=== PATIENT | male | born 2000 | race Caucasian/White ===

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

== ENCOUNTER 2019-10-28 21:12 | Emergency (ER) | payer SELFPAY ==
[2019-10-28] MEDS ORDERED: NAPROXEN 250 MG TABLET PO ONE (21:32)
--- NOTE | 2019-10-28 21:35 | ER Document Report ---
ED Oral Problem - General Chief Complaint: Toothache Stated Complaint: TOOTHACHE Time Seen by Provider: 10/28/19 21:18 Primary Care Provider: [facility] [Provider Group] - Follow up in 3-5 days [facility] [Provider Group] - Follow up in 3-5 days TRAVEL OUTSIDE OF THE [place] IN LAST 30 DAYS: No - HPI Notes: 19-year-old male to the emergency department with complaints of left lower jaw pain and tooth ache that began several days ago. He states he has been taking Tylenol to help control his plan but it is not getting better. He states that about a week ago he saw a dentist who told him that he needed to have his tooth pulled but it would cost about $300. He states he does not have that kind of money to spend. He states that he has not had any difficulty opening his mouth, fevers, drooling, facial swelling, difficulty breathing. He states that he does not smoke. - Related Data Allergies/Adverse Reactions: bee venom protein (honey bee) Allergy (Verified 10/28/19 21:20) bees Allergy (Uncoded 05/04/17 16:47) Past Medical History - General Information source: Patient - Social History Smoking Status: Former Smoker Frequency of alcohol use: None Drug Abuse: None Family History: Reviewed & Not Pertinent Patient has suicidal ideation: No Patient has homicidal ideation: No Renal/ Medical History: Denies: Hx Peritoneal Dialysis Psychiatric Medical History: Reports: Hx Bipolar Disorder - Immunizations Immunizations up to date: Yes Hx Diphtheria, Pertussis, Tetanus Vaccination: Yes Review of Systems - Review of Systems Constitutional: denies: Chills, Fever EENT: See HPI, Dental problem Cardiovascular: denies: Chest pain, Palpitations, Heart racing, Syncope, Dizziness, Lightheaded Respiratory: denies: Cough, Short of breath Gastrointestinal: denies: Abdominal pain, Diarrhea, Nausea Musculoskeletal: No symptoms reported Skin: No symptoms reported Hematologic/Lymphatic: No symptoms reported Neurological/Psychological: No symptoms reported -: Yes All other systems reviewed and negative Physical Exam - Vital signs Vitals: Temp Pulse Resp BP Pulse Ox 98.1 F 60 22 H 166/98 H 95 10/28/19 21:17 10/28/19 21:17 10/28/19 21:17 10/28/19 21:17 10/28/19 21:17 Interpretation: Hypertensive - General General appearance: Appears well, Alert In distress: None - HEENT Head: Normocephalic, Atraumatic Eyes: Normal Pupils: PERRL Ears: Normal External canal: Normal Tympanic membrane: Normal Sinus: Normal Nasal: Normal Mouth/Lips: Caries - There are multiple caries in the mouth but to tooth #18 the Belkis extends down into the gum and the tooth is very tender to palpation. There is mild gum erythema and edema around tooth #17 and 18. There is no adolfo fluctuant dental abscess. There is no Carlo's angina. There is no drooling. There is no voice change. Airway is grossly patent Pharynx: Normal. No: Peritonsillar abscess, Retropharyngeal abscess, Uvular edema, Potential airway comprom. Neck: Normal, Supple. No: Lymphadenopathy, Meningismus - Respiratory Respiratory status: No respiratory distress Chest status: Nontender Breath sounds: Normal Chest palpation: Normal - Cardiovascular Rhythm: Regular Heart sounds: Normal auscultation Murmur: No - Abdominal Inspection: Normal Distension: No distension Bowel sounds: Normal Tenderness: Nontender Organomegaly: No organomegaly - Back Back: Normal, Nontender. No: CVA tenderness - Extremities General upper extremity: Normal inspection, Nontender, Normal color, Normal ROM, Normal temperature General lower extremity: Normal inspection, Nontender, Normal color, Normal ROM, Normal temperature, Normal weight bearing. No: Elmer's sign - Neurological Neuro grossly intact: Yes Cognition: Normal Orientation: AAOx4 Kirsten Coma Scale Eye Opening: Spontaneous Kirsten Coma Scale Verbal: Oriented Kirsten Coma Scale Motor: Obeys Commands Fleming Coma Scale Total: 15 Speech: Normal Cranial nerves: Normal Cerebellar coordination: Normal Motor strength normal: LUE, RUE, LLE, RLE Additional motor exam normals: Equal middle school director. No: Pronator drift Sensory: Normal - Psychological Associated symptoms: Normal affect, Normal mood - Skin Skin Temperature: Warm Skin Moisture: Dry Skin Color: Normal Course - Re-evaluation Re-evalutation: Impression: Dental caries, dental pain likely an evolving dental infection. We will go ahead and start on amoxicillin and sent home with Naprosyn and Peridex. Have encouraged the patient to follow-up with a dentist without fail for further management of his dental caries. Patient agrees with the plan. Urged to return if any worsening symptoms or concerns. - Vital Signs Vital signs: Temp Pulse Resp BP Pulse Ox 98.1 F 66 20 152/90 H 98 10/28/19 21:17 10/28/19 21:54 10/28/19 21:54 10/28/19 21:54 10/28/19 21:54 Discharge - Discharge Clinical Impression: Dental caries, Pain, dental, Elevated blood pressure reading Condition: Stable Disposition: HOME, SELF-CARE Instructions: [facility], Toothache ([facility]) Additional Instructions: COMPLETE ANTIBIOTICS. PUSH FLUIDS, FOLLOW UP WITH DENTIST. RETURN IF WORSENING SYMPTOMS SUCH HAS FACIAL SWELLING, FEVERS, SHORTNESS OF BREATH. Prescriptions: Amoxicillin 1 tab PO TID #30 tab Naproxen [Naprosyn] 500 mg PO BID #20 tablet Chlorhexidine Gluconate [Peridex] 15 ml MM TID #420 ml Referrals: [facility] [Provider Group] - Follow up in 3-5 days [facility] [Provider Group] - Follow up in 3-5 days
[2019-10-28 22:19] VITALS: BP 152/90
== END 2019-10-28 21:54 | disposition home or self-care (01) ==
LOC: ER 21:12
DX: K02.9 Dental caries, unspecified (principal); K08.89 Other specified disorders of teeth and supporting structures; R03.0 Elevated blood-pressure reading, without diagnosis of hypertension; R68.84 Jaw pain; Z87.891 Personal history of nicotine dependence
CPT/HCPCS: 99282; J3490